=== PATIENT | female | born 1970 | race Caucasian/White ===

== ENCOUNTER 2016-12-11 14:55 | Emergency (ER) | payer OTHER ==
[~2016-12-11 14:55] MED LIST: ACETAMINOPHEN325 MG PO; AMBIEN5 MG PO; ATIVAN0.5 MG PO; B-121000 MCG PO; COLACE100 MG PO; FERROUS SULFAT325 M2 PO; HCTZ12.5 MG PO; KEFLEX500 MG PO; MOTRIN600 MG PO; PERCOCET 5/3251 TAB PO; PROTONIX 40MG T40 MG PO; PROZAC20 MG PO; VITAMIN B COMP1 EAC1 PO; XANAX0.5 MG PO; ZOFRAN4 MG PO
== END 2016-12-11 16:21 | disposition home or self-care (01) ==
LOC: FER 14:55
DX: J32.9 Chronic sinusitis, unspecified (principal); R19.7 Diarrhea, unspecified; F41.9 Anxiety disorder, unspecified; Z88.5 Allergy status to narcotic agent; Z79.899 Other long term (current) drug therapy
CPT/HCPCS: 99283